=== PATIENT | male | born 1945 | race Caucasian/White ===

== ENCOUNTER → 2017-10-12 | Outpatient (CLI) | payer OTHER, MEDICARE, BC ==
--- NOTE | 2017-10-12 15:37 | RADIOLOGY REPORT (SQ) ---
EXAM DESCRIPTION: VENOUS UNILATERAL LOWER COMPLETED DATE/TIME: 10/12/2017 3:25 pm REASON FOR STUDY: LLE PAIN M79.605 PAIN IN LEFT LEG R09.89 OTH SYMPTOMS AND SIGNS INVOLVING THE CI RC AND RESP SY COMPARISON: None. TECHNIQUE: Dynamic and static hammonds scale and color images acquired of the left leg venous system. Se lected spectral images acquired with additional compression and augmentation maneuvers. The contralat eral common femoral vein and saphenofemoral junction were also imaged. Images stored on PACS. LIMITATIONS: None. FINDINGS: COMMON FEMORAL: Normal phasicity, compression and augmentation. No visualized echogenic ma terial on hammonds scale. No defects on color images. FEMORAL: Normal compression and augmentation. No visualized echogenic material on hammonds scale. No defe cts on color images. POPLITEAL: Noncompressible, lack of spontaneous and phasic flow. Apparent thrombus. CALF VESSELS: Clot in the posterior tibial veins. GSV and SSV: Normal compression, augmentation. No visualized echogenic material on hammonds scale. No def ects on color images. ANY DEEP VENOUS INSUFFICIENCY: Not evaluated. ANY EVIDENCE OF POPLITEAL CYST: No. OTHER: No other significant finding. CONTRALATERAL COMMON FEMORAL VEIN AND SAPHENOFEMORAL JUNCTION: Normal phasicity, compression and augmentation. No visualized echogenic material on hammonds scale. No de fects on color images. IMPRESSION: 1. Positive for left lower extremity DVT, popliteal and posterior tibial vein. Preliminary report was called by the technologist to the referring clinician's office at the time of patient visit. TECHNICAL DOCUMENTATION: JOB ID: [id number] [employer]- All Rights Reserved Reading location - IP/workstation name: [email or web address]
== END ==
LOC: SP 14:22
PROVIDERS: ATTEND Physician Assistant
DX: M79.605 Pain in left leg (principal); R09.89 Other specified symptoms and signs involving the circulatory and respiratory systems; I82.432 Acute embolism and thrombosis of left popliteal vein; I82.442 Acute embolism and thrombosis of left tibial vein
CPT/HCPCS: 93971

== ENCOUNTER 2018-04-29 11:34 | Emergency (ER) | payer MEDICARE, BC ==
--- NOTE | 2018-04-29 12:06 | ER Document Report ---
ED Medical Screen (RME) - General Chief Complaint: Chest Pain Stated Complaint: CHEST PAIN Time Seen by Provider: 04/29/18 12:05 Notes: Patient is a 72-year-old male with CAD, status post 7 stents that presents to the emergency department for chief complaint of chest pain that started approximately 2 hours ago. Patient did take 2 full dose aspirin prior to ED arrival, as well as home nitroglycerin without resolution of his chest pain. ROS: Other than noted above, the 12 point review of systems was reviewed with the patient and were negative, all pertinent findings are included in the HPI. PHYSICAL EXAMINATION: Vital signs reviewed. GENERAL: Well-appearing, well-nourished and in no acute distress. HEAD: Atraumatic, normocephalic. EYES: Pupils equal round extraocular movements intact, conjunctiva are normal. ENT: Nares patent NECK: Normal range of motion CV: Heart rate bradycardic, regular rhythm LUNGS: No respiratory distress Musculoskeletal: Normal range of motion NEUROLOGICAL: Normal speech PSYCH: Normal mood, normal affect. MDM: Patient seen and examined for rapid initial assessment. Vital signs reviewed. A comprehensive ED assessment and evaluation of the patient, analysis of test results and completion of the medical decision making process will be conducted by additional ED providers. *Note is created using voice recognition software and may contain spelling, syntax or grammatical errors. TRAVEL OUTSIDE OF THE [place] IN LAST 30 DAYS: No Physical Exam - Vital signs Vitals: Temp Pulse Resp BP Pulse Ox 98.3 F 54 L 14 119/60 96 04/29/18 12:00 04/29/18 12:00 04/29/18 12:00 04/29/18 12:00 04/29/18 12:00 Course - Vital Signs Vital signs: Temp Pulse Resp BP Pulse Ox 98.3 F 54 L 14 119/60 96 04/29/18 12:00 04/29/18 12:00 04/29/18 12:00 04/29/18 12:00 04/29/18 12:00
[2018-04-29] MEDS ORDERED: NITROGLYCERIN 0.4 MG/TAB 25 TAB/BOTTLE SL PRN (12:10)
[2018-04-29 12:44] LABS: ABSOLUTE EOSINOPHILS # (AUTO) 0.3 10^3/uL (0.0-0.6); ABSOLUTE LYMPHOCYTES (AUTO) 0.9 10^3/uL (0.5-4.7); ABSOLUTE MONOCYTES (AUTO) 0.4 10^3/uL (0.1-1.4); ABSOLUTE NEUT (AUTO) 2.8 10^3/uL (1.7-8.2); BASOPHILS % (AUTO) 0.9 % (0-2); EOSINOPHILS % (AUTO) 6.2 % (0-6); HEMATOCRIT 34.8 % (37.9-51.0); HEMOGLOBIN 11.2 g/dL (13.5-17.0); LYMPHOCYTES % (AUTO) 20.2 % (13-45); MEAN CORPUSCULAR HEMOGLOBIN 23.1 pg (27.0-33.4); MEAN CORPUSCULAR HGB CONC 32.3 g/dL (32.0-36.0); MEAN CORPUSCULAR VOLUME 71 fl (80-97); MONOCYTES % (AUTO) 9.8 % (3-13); PLATELET COUNT 231 10^3/uL (150-450); RED BLOOD COUNT 4.87 10^6/uL (4.35-5.55); RED CELL DISTRIBUTION WIDTH 19.3 % (11.5-14.0); SEGMENTED NEUTROPHILS % (AUTO) 62.9 % (42-78); TOTAL CELLS COUNTED % (AUTO) 100 %; WHITE BLOOD COUNT 4.4 10^3/uL (4.0-10.5)
--- NOTE | 2018-04-29 13:02 | RADIOLOGY REPORT (SQ) ---
EXAM DESCRIPTION: CHEST SINGLE VIEW COMPLETED DATE/TIME: 04/29/2018 12:44 pm REASON FOR STUDY: chest pain COMPARISON: None. EXAM PARAMETERS: NUMBER OF VIEWS: One view. TECHNIQUE: Single frontal radiographic view of the chest acquired. RADIATION DOSE: NA LIMITATIONS: None. FINDINGS: LUNGS AND PLEURA: Probable elevation of the right hemidiaphragm. No opacities, masses or pneumothorax. No pleural effusion. MEDIASTINUM AND HILAR STRUCTURES: No masses. Contour normal. HEART AND VASCULAR STRUCTURES: Heart normal in size. Normal vasculature. BONES: No acute findings. HARDWARE: Surgical clips in the right axilla. OTHER: No other significant finding. IMPRESSION: 1. Probable elevation of the right hemidiaphragm related to eventration. No airspace op acity in AP projection. 2. Surgical clips in the right axilla. Correlate with clinical history. TECHNICAL DOCUMENTATION: JOB ID: [id number] [employer]- All Rights Reserved Reading location - IP/workstation name: [email or web address]
--- NOTE | 2018-04-29 13:32 | ER Document Report ---
ED General - General Chief Complaint: Chest Pain Stated Complaint: CHEST PAIN Time Seen by Provider: 04/29/18 12:05 TRAVEL OUTSIDE OF THE [place] IN LAST 30 DAYS: No - HPI Notes: Patient is a 72-year-old male with a history of coronary artery disease (7 previous stents), hypertension, hypercholesteremia, former smoker, previous DVT who presents to the ED complaining of right-sided chest pain that has been present for about 3 hours. Patient states that when the symptoms started he had chest pain all the way across on both sides. Patient states that movement of his arms can improve his symptoms, but not resolve them. He did take nitro and aspirin at home with no resolution. Patient states that he is able to ambulate without worsening discomfort. Patient states that he is not on any blood thinning medication of Xarelto in the past made him go severely anemic. He has no other concerns or complaints. Denies drug allergies. Denies any headache, fever, neck pain, URI, sore throat, palpitations, syncope, cough, shortness of breath, wheeze, dyspnea, abdominal pain, nausea/vomiting/diarrhea, urinary retention, dysuria, hematuria, or rash. - Related Data Allergies/Adverse Reactions: No Known Allergies Allergy (Unverified 04/29/18 14:26) Past Medical History - Social History Smoking Status: Former Smoker Chew tobacco use (# tins/day): No Frequency of alcohol use: None Drug Abuse: None Family History: Reviewed & Not Pertinent Patient has suicidal ideation: No Patient has homicidal ideation: No - Past Medical History Cardiac Medical History: Reports: Hx Heart Attack Pulmonary Medical History: Reports: Hx COPD Renal/ Medical History: Denies: Hx Peritoneal Dialysis Review of Systems - Review of Systems -: Yes All other systems reviewed and negative Physical Exam - Vital signs Vitals: Temp Pulse Resp BP Pulse Ox 98.3 F 54 L 14 119/60 96 04/29/18 12:00 04/29/18 12:00 04/29/18 12:00 04/29/18 12:00 04/29/18 12:00 - Notes Notes: PHYSICAL EXAMINATION: GENERAL: Well-appearing, well-nourished and in no acute distress. Pleasant. A& Ox4. Vitals: Pulses equal b/l. BP rt arm: 123/68 approx and lt arm: 134/76 approx HEAD: Atraumatic, normocephalic. EYES: Pupils equal round and reactive to light, extraocular movements intact, sclera anicteric, conjunctiva are normal. ENT: Nares patent and without discharge. oropharynx clear without exudates. No tonsilar hypertrophy or erythema. Moist mucous membranes. NECK: Normal range of motion, supple without lymphadenopathy Chest: Non-tender. LUNGS: Breath sounds clear to auscultation bilaterally and equal. No wheezes rales or rhonchi. HEART: Regular rate and rhythm without murmurs, rubs, gallops. ABDOMEN: Soft, nontender, nondistended abdomen. No guarding, no rebound. No masses appreciated. Normal bowel sounds present. No CVA tenderness bilaterally. Musculoskeletal: FROM to passive/active. Strength 5+/5. Whitney neg. No asymmetry to LE's. Extremities: No cyanosis, clubbing, or edema b/l. Peripheral pulses 2+. Capillary refill less than 3 seconds. NEUROLOGICAL: Normal speech, normal gait. PSYCH: Normal mood, normal affect. SKIN: Warm, Dry, normal turgor, no rashes or lesions noted. Course - Re-evaluation Re-evalutation: 04/29/18 16:30 Patient is an afebrile, well-hydrated 72-year-old male who presents to the ED with chest pain, unspecified. Vitals are acceptable without any significant tachycardia, tachypnea, or hypoxia. PE is otherwise unremarkable. Patient is nontoxic-appearing and is tolerating p.o. without any difficulties. CBC, CMP, EKG/cardiac enzymes 2, chest x-ray are all unremarkable for any acute pathology. Patient has a heart score of 4. D-dimer +. CTA negative for PE. Reviewed impression with the hospitalist and Dr. Nava. Will defer to hospitalist to decipher at this time as it shows atypical pneumonia vs neoplastic process. Patient does not have any cough, dyspnea, or shortness of breath. Spoke with Dr. Felix who will accept for for admission to [facility]. - Vital Signs Vital signs: Temp Pulse Resp BP Pulse Ox 98.3 F 54 L 16 147/67 H 98 04/29/18 12:00 04/29/18 12:00 04/29/18 16:00 04/29/18 15:00 04/29/18 16:00 - Laboratory Result Diagrams: 04/29/18 12:15 04/29/18 13:09 Laboratory results interpreted by me: 04/29/18 04/29/18 04/29/18 12:15 13:09 13:50 Hgb 11.2 L Hct 34.8 L MCV 71 L MCH 23.1 L RDW 19.3 H Eosinophils % 6.2 H D-Dimer 1.04 H Carbon Dioxide 33 H ALT 18 L Total Protein 6.1 L Albumin 3.4 L Discharge - Discharge Clinical Impression: Chest pain Qualifiers: Chest pain type: unspecified Qualified Code(s): R07.9 - Chest pain, unspecified Condition: Stable Disposition: ADMITTED INPATIENT Admitting Provider: Hospitalist - Dr. Felix Unit Admitted: Telemetry Referrals: NIDIA DIETRICH MD [Primary Care Provider] - Follow up as needed
[2018-04-29 13:44] LABS: ALANINE AMINOTRANSFERASE 18 U/L (21-72); ALBUMIN 3.4 g/dL (3.5-5.0); ALKALINE PHOSPHATASE 72 U/L (38-126); ANION GAP 7 (5-19); ASPARTATE AMINO TRANSFERASE 18 U/L (17-59); BILIRUBIN,DIRECT 0.2 mg/dL (0.0-0.4); BILIRUBIN,TOTAL 0.5 mg/dL (0.2-1.3); BLOOD UREA NITROGEN 20 mg/dL (7-20); CALCIUM 8.9 mg/dL (8.4-10.2); CARBON DIOXIDE 33 mmol/L (22-30); CHLORIDE 103 mmol/L (98-107); GLUCOSE 81 mg/dL (75-110); POTASSIUM 3.9 mmol/L (3.6-5.0); SODIUM 143.3 mmol/L (137-145); TOTAL PROTEIN 6.1 g/dL (6.3-8.2)
[2018-04-29 14:30] LABS: INTERNATIONAL RATION (INR) 1.02; PROTHROMBIN TIME 13.9 SEC (11.4-15.4)
[2018-04-29 14:31] LABS: PARTIAL THROMBOPLASTIN TIME 25.7 SEC (23.5-35.8)
[2018-04-29 14:33] LABS: D-DIMER 1.04 ug/mL (0.00-0.50)
--- NOTE | 2018-04-29 16:18 | RADIOLOGY REPORT (SQ) ---
EXAM DESCRIPTION: CTA CHEST COMPLETED DATE/TIME: 04/29/2018 3:41 pm REASON FOR STUDY: Rt CP COMPARISON: Portable chest dated 04/29/2018 TECHNIQUE: CT scan of the chest performed using helical scanning technique with dynamic intravenous contrast injection. Images reviewed with lung, soft tissue and bone windows. Reconstructed coronal and sagittal MPR images reviewed. Additional 3 dimensional post-processing performed to develop Maximal Intensity Projection images (UT P). All images stored on PACS. All CT scanners at this facility use dose modulation, iterative reconstruction, and/or weight based d osing when appropriate to reduce radiation dose to as low as reasonably achievable (ALARA). [facility]: Dose Right [facility]: CareDose [facility]: Dose Right [facility]: Teradose 4D [facility]: FishBrain CONTRAST TYPE AND DOSE: contrast/concentration: Isovue 350.00 mg/ml; Total Contrast Delivered: 73.0 ml; Total Saline Delivered: 110.0 ml Contrast bolus optimized for the pulmonary arteries. Not diagnostic for the aorta. RENAL FUNCTION: Creatinine 0.91 RADIATION DOSE: CT Rad equipment meets quality standard of care and radiation dose reduction techniq ues were employed. CTDIvol: 12.5 - 15.0 mGy. DLP: 498 mGy-cm. . LIMITATIONS: None. FINDINGS: LUNGS AND PLEURA: No airspace consolidations or pleural effusions are identified. No pneu mothorax is seen. Scattered emphysematous changes are identified. Chronic appearing pleural and par enchymal changes are identified. Surgical clips are identified at the level of the right lung apex. There are some scattered ill-defined nodular densities in the right middle lobe with the largest shara suring 6 mm in greatest diameter. Differential possibilities would include an infectious process inc luding an atypical pneumonia versus a possible neoplastic process. Clinical correlation and followup is recommended AORTA AND GREAT VESSELS: No aneurysm. Contrast bolus not optimized for the aorta. Scattered vascula r calcifications are identified in the thoracic aorta. HEART: No pericardial effusion. There appear to be coronary stents. PULMONARY ARTERIES: No emboli visualized in the main pulmonary arteries or the segmental branches. HILAR AND MEDIASTINAL STRUCTURES: Nonenlarged mediastinal lymph nodes are identified. A fairly well demarcated slightly lobulated mass is identified in the anterior mediastinum measuring 9.5 mm in grea test diameter and containing a eccentric calcification. The appearance would suggest a benign proces s such as a lymph node or possible hamartoma. There are a few scattered nodular densities in the epi cardial fat with the largest measuring 8.6 mm most consistent with lymph nodes. HARDWARE: None in the chest. UPPER ABDOMEN: There are some scattered relative low density areas in the liver which are too small t o further characterize by CT. THYROID AND OTHER SOFT TISSUES: No masses. No adenopathy. Surgical clips are identified in the righ t axillary region. BONES: No acute or significant finding. 3D MIPS: Confirm above findings. OTHER: No other significant finding. IMPRESSION: No evidence for pulmonary embolic disease. No airspace consolidations or pleural effusi ons are identified. There are some scattered ill-defined nodular densities in the right middle lobe as noted above. Differential possibilities would include an infectious process including an atypical pneumonia versus a possible neoplastic process. Clinical correlation and followup is recommended. Scattered mediastinal lymph nodes are identified as well as a slightly lobulated mass in the anterior mediastinum containing an eccentric calcification which could represent a lymph or other benign proc ess as noted above. Scattered lymph nodes are identified in the epicardial fat. Other findings as n oted above COMMENT: Quality ID # [id number]: Final reports with documentation of one or more dose reduction techniques (e.g., Automated exposure control, adjustment of the mA and/or kV according to patient size, use of iterative reconstruction technique) TECHNICAL DOCUMENTATION: JOB ID: [id number] [employer]- All Rights Reserved Reading location - IP/workstation name: [email or web address]
[2018-04-29 17:07] VITALS: BP 160/76
--- NOTE | 2018-04-29 22:00 | EKG REPORT ---
SEVERITY:- OTHERWISE NORMAL ECG - SINUS BRADYCARDIA : Confirmed by: Penelope Ya MD 29-Apr-2018 21:59:38
== END 2018-04-29 17:17 | disposition left against medical advice (07) ==
LOC: ER 11:34 → UNDOADMIN 16:40 → EH 16:40 → ER 17:17
DX: R07.9 Chest pain, unspecified (principal); I25.10 Atherosclerotic heart disease of native coronary artery without angina pectoris; I10 Essential (primary) hypertension; E78.00 Pure hypercholesterolemia, unspecified; J44.9 Chronic obstructive pulmonary disease, unspecified; Z87.891 Personal history of nicotine dependence; Z86.718 Personal history of other venous thrombosis and embolism
CPT/HCPCS: 36415; 71045; 71275; 80053; 84484; 85025; 85379; 85610; 85730; 93005; 93010; 99285

== ENCOUNTER 2020-05-08 06:45 | Emergency (ER) | payer MEDICARE, BC ==
[2020-05-08] MEDS ORDERED: OXYCODONE-ACETAMINOPHEN 5-325 MG TABLET PO ONE (07:14)
--- NOTE | 2020-05-08 07:22 | ER Document Report ---
ED General - General Chief Complaint: Wrist Pain Stated Complaint: FALL Time Seen by Provider: 05/08/20 07:07 Primary Care Provider: NIDIA DIETRICH MD [Primary Care Provider] - Follow up as needed TRAVEL OUTSIDE OF THE [place] IN LAST 30 DAYS: No - HPI Notes: Chief complaint: Left wrist injury History of present illness: 74-year-old male presents for evaluation of left wrist injury. He says he was in bed dreaming around midnight when he started to roll out of bed and awakened enough to catch himself on his left wrist. He complains of pain and swelling of the left wrist. He denies striking his head or sustaining any other injuries. Patient is right-hand dominant. He currently complains of 8/10 intensity pain. - Related Data Allergies/Adverse Reactions: No Known Allergies Allergy (Unverified 04/29/18 14:26) Past Medical History - General Information source: Patient, [facility] Records - Social History Smoking Status: Never Smoker Lives with: Family Family History: Reviewed & Not Pertinent - Past Medical History Cardiac Medical History: Reports: Hx Heart Attack - YRS, Hx Hypertension - MEDS Pulmonary Medical History: Reports: Hx COPD Denies: Hx Asthma Neurological Medical History: Denies: Hx Cerebrovascular Accident, Hx Seizures Renal/ Medical History: Denies: Hx Peritoneal Dialysis GI Medical History: Reports: Hx Hiatal Hernia. Denies: Hx Hepatitis, Hx Ulcer Infectious Medical History: Denies: Hx Hepatitis Past Surgical History: Denies: Hx Open Heart Surgery, Hx Pacemaker Review of Systems - Review of Systems Notes: Constitutional: Negative for fever. HENT: Negative for sore throat. Eyes: Negative for visual changes. Cardiovascular: Negative for chest pain. Respiratory: Negative for shortness of breath. Gastrointestinal: Negative for abdominal pain, vomiting or diarrhea. Genitourinary: Negative for dysuria. Musculoskeletal: As per HPI. Skin: Negative for rash. Neurological: Negative for headaches, weakness or numbness. 10 point ROS negative except as marked above and in HPI. Physical Exam - Vital signs Vitals: Temp Pulse Resp BP Pulse Ox 98.2 F 67 18 148/73 H 100 05/08/20 06:59 05/08/20 06:59 05/08/20 06:59 05/08/20 06:59 05/08/20 06:59 - Notes Notes: GENERAL: Somewhat obese male approximately stated age appearing in no acute distress. SKIN: Good turgor no rashes. HEAD: Normocephalic atraumatic. EYES: PERRLA. EOMI. Conjunctivae and sclerae clear. NECK: Supple. No masses or thyromegaly. No adenopathy. Carotids 2+ without bruits. No JVD. BACK: Symmetrical without tenderness. CHEST: Respirations unlabored. Breath sounds clear and symmetrical. HEART: Regular rhythm. No murmur gallop or rub. ABDOMEN: Soft nontender without masses, organomegaly or rebound. Bowel sounds normally active. No bruits. EXTREMITIES: Pain and swelling over left distal radius. Distal neurovascular exam is intact. No calf tenderness. Cap refill less than 1.5 seconds. Dorsalis pedis and posterior tibial pulses 3+ and symmetrical. NEUROLOGICAL: Alert and oriented x3. Nonfocal. PSYCHIATRIC: Appropriate affect. Course - Re-evaluation Re-evalutation: 05/08/20 08:09 Clinically this man was felt to have a fracture of the distal radius on the left. I immediately removed the ring that was on his left ring finger. We iced and elevated the extremity. X-ray confirmed a comminuted impacted fracture of the distal radius with minimal dorsal angulation. Neurovascular exam is stable. He was immobilized with a sugar tong splint and also given a sling. He was given oral Percocet with good relief of his pain. Patient appears stable for outpatient follow-up with on-call orthopedist. Findings, clinical impression and plan of treatment have been discussed with patient/family. Understanding of current findings and recommendations has been acknowledged by them and there is agreement regarding disposition and follow-up. - Vital Signs Vital signs: Temp Pulse Resp BP Pulse Ox 98.2 F 67 18 148/73 H 100 05/08/20 06:59 05/08/20 06:59 05/08/20 06:59 05/08/20 06:59 05/08/20 06:59 - Diagnostic Test Radiology reviewed: Image reviewed, Reports reviewed Radiology results interpreted by me: 05/08/20 08:08 Wrist X-Ray 05/08/20 06:52 IMPRESSION: Comminuted, impacted transverse fracture through the distal left radial metaphysis with slight volar apex angulation of the fracture fragments and moderate surrounding soft tissue swelling. Procedures - Immobilization Left Lower Arm Time completed: 08:00 Pre-Proc Neuro Vasc Exam: Normal Immobilizer type: Sugar tong, Sling Performed by: PCT Post-Proc Neuro Vasc Exam: Normal Discharge - Discharge Clinical Impression: Fall Closed fracture of distal end of left radius Qualifiers: Encounter type: initial encounter Fracture morphology: unspecified fracture morphology Qualified Code(s): S52.502A - Unspecified fracture of the lower end of left radius, initial encounter for closed fracture Condition: Stable Disposition: HOME, SELF-CARE Additional Instructions: Fracture You have a fracture. The typical broken bone requires only protection and sufficient time for healing. "Setting" is necessary only if the bones are crooked or out of position. The physician will re-assess you periodically to make certain that the bone heals without complications. It's important that you follow the instructions given you. The initial treatment is immobilization, elevation of the injury, and cold packs. Not all fractures require a cast. Depending on the location and type of fracture, immobilization may consist of a splint, cast, sling, bulky dressing, or simply rest. The length of time required for healing depends on the location and type of fracture, and on the age of the patient. The treatment plan the physician has outlined for you is customized to your fracture and health condition. Call the doctor or return at once if pain becomes severe, or if severe sw elling or numbness develop. Use sling as needed. Apply ice packs intermittently. Elevate extremity as much as possible. Follow-up with referral orthopedist. Take prescribed pain medication as needed. Prescriptions: Oxycodone HCl/Acetaminophen [Percocet 5-325 mg Tablet] 1 - 2 tab PO Q4H PRN #15 tablet PRN Reason: Referrals: NIDIA DIETRICH MD [Primary Care Provider] - Follow up as needed MADHAVI BROWN MD [ACTIVE STAFF] - Follow up as needed
--- NOTE | 2020-05-08 08:00 | RADIOLOGY REPORT (SQ) ---
EXAM: WRIST LEFT 3 VIEWS CLINICAL DATA: 74 years Male fall injury TECHNICAL DATA: Three x-ray views of the left wrist were performed on 05/08/2020 at 7:00 AM. COMPARISONS: None FINDINGS: There is a comminuted impacted transverse fracture through the distal left radial metaphysis with slight volar apex angulation of the fracture fragments. There is moderate surrounding soft tissue swelling. There is no definite intra-articular extension. No definite dislocation is identified. No additional fractures are seen. There are no significant degenerative or arthritic changes. Bone mineralization is normal. IMPRESSION: Comminuted, impacted transverse fracture through the distal left radial metaphysis with slight volar apex angulation of the fracture fragments and moderate surrounding soft tissue swelling.
[2020-05-08 08:42] VITALS: BP 124/80
== END 2020-05-08 08:35 | disposition home or self-care (01) ==
LOC: ER 06:45
DX: S52.592A Other fractures of lower end of left radius, initial encounter for closed fracture (principal); W06.XXXA Fall from bed, initial encounter; Y93.84 Activity, sleeping; I10 Essential (primary) hypertension; J44.9 Chronic obstructive pulmonary disease, unspecified
CPT/HCPCS: 29125; 99284; 73110; A9270